=== PATIENT | female | born 1975 | race Caucasian/White ===

== ENCOUNTER 2016-06-04 07:57 | Emergency (ER) | payer OTHER ==
[2016-06-04 08:25] VITALS: BP 126/45
--- NOTE | 2016-06-04 08:26 | UC ---
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 Negative: Swelling, Redness , Bruising, Fever, Numbness, Abdominal Pain, Flank Pain, Bladder Incontinence, Bowel Incontinence, Weight Loss - Allergies/Home Medications Allergies/Adverse Reactions: Allergies Allergy/AdvReac Type Severity Reaction Status Date / Time Sulfa Antibiotics Allergy [place] Verified 06/04/16 08:12 nson Home Medications: Home Medications Ibuprofen TAB* [Advil TAB*] 600 mg PO Q8H PRN 06/04/16 [History Confirmed ] Levothyroxine TAB* [Synthroid TAB*] 25 mcg PO DAILY 06/04/16 [History Confirmed 06/04/16] Spironolactone TAB* [Aldactone TAB*] 25 mg PO DAILY 06/04/16 [History Confirmed 06/04/16] PMH/Surg Hx/FS Hx/Imm Hx Endocrine History Of: Reports: Thyroid Disease - Hypothyroidism - Surgical History Surgical History: Yes Surgery Procedure, Year, and Place: Ovarian Cysts, Cholecystectomy - Family History Known Family History: Negative: Diabetes - Social History Alcohol Use: None Substance Use Type: None Smoking Status (MU): Never Smoked Tobacco Review of Systems Constitutional: Negative Skin: Negative Eyes: Negative ENT: Negative Respiratory: Negative Cardiovascular: Negative Gastrointestinal: Negative Musculoskeletal: Other: - LOWER BACK PAIN All Other Systems Reviewed And Are Negative: Yes Physical Exam Triage Information Reviewed: Yes Appearance: Well-Appearing, No Pain Distress, Well-Nourished Vital Signs: Initial Vital Signs Temp 98.6 F 06/04/16 08:01 Pulse 90 06/04/16 08:01 Resp 16 06/04/16 08:01 BP 126/45 06/04/16 08:01 Pulse Ox 99 06/04/16 08:01 Vital Signs Reviewed: Yes Eyes: Positive: Conjunctiva Clear ENT: Positive: Normal ENT inspection, Hearing grossly normal, Pharynx normal Neck: Positive: Supple, Nontender, No Lymphadenopathy Respiratory: Positive: Chest non-tender, Lungs clear, Normal breath sounds, No respiratory distress Cardiovascular: Positive: RRR, No Murmur, Pulses Normal Abdominal Exam: Normal Abdomen Description: Positive: Nontender, Soft Bowel Sounds: Positive: Present Musculoskeletal: Positive: Other: - LOWER BACK: NO SWELLING NO ERYTHEMA, NO TENDERNESS + PAIN WITH FLEXION AND EXTENSION DTR : + 2 BL LOWER EXT. Back Pain Course/Dx - Differential Dx/Diagnosis Provider Diagnoses: LOWER BACK STRAIN Discharge - Discharge Plan Condition: Stable Disposition: HOME Patient Education Materials: Low Back Strain (ED) Forms: *Work Release Additional Instructions: follow up with your pcp in one week
== END 2016-06-04 08:37 | disposition home or self-care (01) ==
LOC: UCCORT 07:57
DX: S39.012A Strain of muscle, fascia and tendon of lower back, initial encounter (principal); X50.0XXA Overexertion from strenuous movement or load, initial encounter; Y93.F2 Activity, caregiving, lifting; Y92.234 Operating room of hospital as the place of occurrence of the external cause; Y99.0 Civilian activity done for income or pay; Z88.2 Allergy status to sulfonamides
CPT/HCPCS: 99201; G0463

== ENCOUNTER 2017-12-28 11:28 | Emergency (ER) | payer BC, OTHER ==
[2017-12-28 12:17] VITALS: BP 138/85
--- NOTE | 2017-12-28 12:36 | UC ---
UC General HPI - HPI Summary HPI Summary: Pt c/o gradual onset of cough, generalized malaise, body aches, nasal congestion , ST, fever, X 7days. - History of Current Complaint Chief Complaint: UCGeneralIllness Stated Complaint: GENERAL ILL FEELING Time Seen by Provider: 12/28/17 12:08 Hx Obtained From: Patient Hx Last Menstrual Period: 12/14/17 Onset/Duration: Sudden Onset, Lasting Days, Still Present, Worse Since - onset Timing: Constant Onset Severity: Mild Current Severity: Severe Pain Intensity: 8 Associated Signs & Symptoms: Positive: Back Pain, Fever - Allergy/Home Medications Allergies/Adverse Reactions: Allergies Allergy/AdvReac Type Severity Reaction Status Date / Time Sulfa (Sulfonamide Allergy See Comment Verified 12/28/17 12:09 Antibiotics) Home Medications: Home Medications Acetaminophen [Acetaminophen Extra Strength] 1,000 mg PO Q6H PRN 12/28/17 [ History Confirmed 12/28/17] Dm/Pseudoephed/Acetaminophen [Day-Time Cold-Flu Softgel] 2 cap PO BID PRN [History Confirmed 12/28/17] PMH/Surg Hx/FS Hx/Imm Hx Previously Healthy: Yes - Surgical History Surgical History: Yes Surgery Procedure, Year, and Place: Ovarian Cysts, Cholecystectomy - Family History Known Family History: Positive: Cardiac Disease Negative: Diabetes - Social History Occupation: Employed Full-time Lives: With Family Alcohol Use: None Substance Use Type: None Smoking Status (MU): Never Smoked Tobacco Have You Smoked in the Last Year: No Review of Systems Constitutional: Fever, Chills, Fatigue Skin: Negative Eyes: Negative ENT: Sore Throat, Sinus Congestion, Sinus Pain/Tenderness Respiratory: Cough Cardiovascular: Negative Gastrointestinal: Abdominal Pain Genitourinary: Negative Motor: Negative Neurovascular: Negative Musculoskeletal: Myalgia Neurological: Headache Psychological: Negative Is Patient Immunocompromised?: No All Other Systems Reviewed And Are Negative: Yes Physical Exam Triage Information Reviewed: Yes Appearance: Well-Appearing Vital Signs: Initial Vital Signs Temp 98.7 F 12/28/17 12:12 Pulse 81 12/28/17 12:12 Resp 18 12/28/17 12:12 BP 138/85 12/28/17 12:12 Pulse Ox 98 12/28/17 12:12 Vital Signs Reviewed: Yes Eye Exam: Normal ENT: Positive: Nasal congestion Dental Exam: Normal Neck exam: Normal Respiratory Exam: Normal Respiratory: Positive: Normal breath sounds Cardiovascular Exam: Normal Musculoskeletal Exam: Normal Neurological Exam: Normal Psychological Exam: Normal Skin Exam: Normal Diagnostics - Laboratory Diagnostic Studies Completed/Ordered: rapid strep: negative. rapid flu: negative Course/Dx - Differential Dx - Multi-Symptom Differential Diagnoses: Other - strep throat, viral syndrome, bronchitis Provider Diagnoses: viral syndrome Discharge - Sign-Out/Discharge Documenting (check all that apply): Patient Departure All imaging exams completed and their final reports reviewed: No Studies - Discharge Plan Condition: Stable Disposition: HOME Prescriptions: Benzonatate CAP* [Tessalon 100 MG CAP*] 100 mg PO Q8H PRN #30 cap PRN Reason: Cough predniSONE TAB* [Deltasone 20 MG TAB*] 20 mg PO DAILY #4 tab Patient Education Materials: Viral Syndrome (ED) Forms: *Work Release Referrals: Mannie Barbosa MD [Primary Care Provider] - If Needed - Billing Disposition and Condition Condition: STABLE Disposition: Home
== END 2017-12-28 12:55 | disposition home or self-care (01) ==
LOC: UCCORT 11:28
DX: B34.9 Viral infection, unspecified (principal); Z88.2 Allergy status to sulfonamides
CPT/HCPCS: 87651; 99211; G0463